=== PATIENT | female | born 1985 | race Caucasian/White ===

== ENCOUNTER → 2016-06-16 | Outpatient (CLI) | payer BC | END | disposition disaster alternative care site (69) | LOC: GAIR 12:32 | DX: J96.00 Acute respiratory failure, unspecified whether with hypoxia or hypercapnia (principal); J45.909 Unspecified asthma, uncomplicated; F90.9 Attention-deficit hyperactivity disorder, unspecified type; B97.4 Respiratory syncytial virus as the cause of diseases classified elsewhere; Z90.89 Acquired absence of other organs; Z79.891 Long term (current) use of opiate analgesic; Z79.899 Other long term (current) drug therapy | CPT/HCPCS: A0422; A0431; A0436 ==